=== PATIENT | male | born 2000 | race Caucasian/White ===

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

== ENCOUNTER → 2020-01-06 | Outpatient (CLI) | payer OTHER ==
[2020-01-06 20:32] LABS: U Amphetamine Screen Not Detected; U Barbituate Screen Not Detected; U Benzodiazapine Screen Not Detected; U Cocaine Screen Not Detected; U Methadone Screen Not Detected; U Methamphetamine Screen Not Detected; U Opiates Screen Not Detected
[2020-01-06 20:33] LABS: U Buprenorphine Screen Not Detected; U Cannabinoids Screen Not Detected; U Oxycodone Screen Not Detected; U Propoxyphene Screen Not Detected
== END ==
LOC: LAB 11:23 → LAB SHORT 11:23
PROVIDERS: Registered Nurse Psychiatric/Mental Health
DX: Z51.81 Encounter for therapeutic drug level monitoring (principal); Z79.899 Other long term (current) drug therapy

== ENCOUNTER → 2022-03-19 | Outpatient (CLI) | payer OTHER ==
[~2022-03-19] MED LIST changes: +AMOCLA875 PO
[2022-03-19 19:05] LABS: CHOL/HDL RATIO 2.6; Cholesterol 176 mg/dL (50-200); HDL Cholesterol 68 mg/dL (>39); LDL/HDL RATIO 1.5; Low Density Lipoprotein Chol 100 mg/dL (0-110); Triglycerides 38 mg/dL (30-140); Very Low Density Lipoprot Chol 7 mg/dL (6-28)
== END | disposition home or self-care (01) ==
LOC: LAB SHORT 16:47
PROVIDERS: Nurse Practitioner Family
DX: Z00.129 Encounter for routine child health examination without abnormal findings (principal)
CPT/HCPCS: 80061

== ENCOUNTER 2024-05-23 02:26 | Emergency (ER) | payer OTHER ==
[~2024-05-23] VITALS: Ht 175.3 cm; Wt 72.6 kg
[~2024-05-23 02:26] MED LIST changes: +Pepcid40 MG PO
[2024-05-23 03:13] VITALS: BP 109/91
[2024-05-23] MEDS ORDERED: Ketorolac Tromethamine 30mg Vial IM ONE (03:50)
== END 2024-05-23 04:10 | disposition home or self-care (01) ==
LOC: ER 02:26
DX: S93.401A Sprain of unspecified ligament of right ankle, initial encounter (principal); V47.5XXA Car driver injured in collision with fixed or stationary object in traffic accident, initial encounter
CPT/HCPCS: 73610; 99284-25